=== PATIENT | male | born 1970 | race Caucasian/White ===

== ENCOUNTER 2017-01-23 17:07 | Emergency (ER) | payer MEDICARE, MEDICAID ==
[~2017-01-23] VITALS: Ht 177.8 cm; Wt 104.3 kg
[~2017-01-23 17:07] MED LIST: AMITRIPTYLINE H25 MG PO; AMITRIPTYLINE25 MG; APPEAREX2.5 MG PO; AVINZA90 MG PO; CARAFATE1 GM/10 ML PO; CHOLESTEROL MED; CIPRO500 MG PO; CIPROFLOXACIN500 MG PO; CYANOCOBAL1000 MCG/M IM; EPA FISH OIL1000 MG PO; ERYTHROMYCIN5 MG/GM OPH; FLAGYL500 MG PO; GARLIC OIL NATUR1 MG PO; LAMISIL1% T; LIPITOR20 MG PO; LODOSYN25 MG; LOPID600 MG; MAGNESIUM250 M1 PO; METHOCARBAMOL500 MG PO; NEURONTIN600 MG PO; NORCO 325 MG-51 TAB PO; OPANA ER40 MG PO; OYSTER SHELL CA PO; PERCOCET 325 MG1 TA2 PO; PERCOCET 325 MG1 TA7 PO; PERCOCET 650 MG1 TA1 PO; PRILOSEC20 MG PO; SINEMET 25-1001 TA1 PO; TOBRADEX 0.1%-0.5 ML OPH; TRAMADOL HCL50 MG PO; Tobrex Ophth S2.5 ML OPH; URSODIOL300 MG PO; VITAMIN D50000 I3 PO; WELLBUTRIN XL300 MG PO; ZINC PO; [UNRECOGNIZED DRUG - OTHER] OP
[2017-01-23 17:11] VITALS: BP 151/79
[2017-01-23] MEDS ORDERED: CEFADROXIL500 M1 PO (17:17)
== END 2017-01-23 18:03 | disposition home or self-care (01) ==
LOC: ED 17:07
DX: S61.012A Laceration without foreign body of left thumb without damage to nail, initial encounter (principal); Z98.890 Other specified postprocedural states; Z98.84 Bariatric surgery status; Z79.899 Other long term (current) drug therapy; Z88.5 Allergy status to narcotic agent; W27.8XXA Contact with other nonpowered hand tool, initial encounter; Y93.89 Activity, other specified; Y92.89 Other specified places as the place of occurrence of the external cause; Y99.9 Unspecified external cause status

== ENCOUNTER 2017-06-06 18:28 | Inpatient (IN) | payer MEDICARE, MEDICAID ==
[~2017-06-06] VITALS: Ht 175.3 cm; Wt 98.7 kg
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
--- NOTE | ~2017-06-06 | PR ---
[place], [place] [id number] #: [id number] ROOM: 503 DOCTOR: LUCIUS ROLAND MD BIRTHDATE: [birth year] DOS: SUBJECTIVE: The patient has been admitted to the hospital with chest pain. He is feeling much better. He denies any chest pain, no difficulty in breathing, no nausea and no vomiting, eating well and his vitamin B 12 is 2000, folic acid is normal, vitamin D is 24.1. OBJECTIVE: VITAL SIGNS: His blood pressure is 112/58, pulse 54, respirations 18, temperature 98.7. CHEST: Clear. HEART: Regular. ABDOMEN: Soft. The patient is for stress test tomorrow. LUCIUS ROLAND MD CM:PNTRANS [phone] LUCIUS ROLAND MD 06/08/17 1606 interface
--- NOTE | ~2017-06-06 | PR ---
[place], [place] PROGRESS NOTE [id number] #: [id number] ROOM: 503 DOCTOR: LUCIUS ROLAND MD BIRTHDATE: [birth year] DOS: SUBJECTIVE: The patient had been admitted to the hospital yesterday evening with chest pain on the left-side, radiating in left arm. At present, the patient is feeling good. He denies any chest pain. No difficulty in breathing. No diaphoresis. No other problem. He is sitting comfortably in the bed and his chest x-ray was normal. DIAGNOSTIC STUDIES: CAT scan of lungs was normal and his CBC shows white count 7000, hemoglobin 12.4, hematocrit 35.3, other values are fairly normal. Comprehensive metabolic profile shows calcium 7.9, magnesium 2.3, other values are all normal. Lipid profile is normal. Liver profile is normal. Thyroid is normal. Hemoglobin A1c 4.9. Vitamin B12 and folic acid are normal, but vitamin D is little low, 24.1. The patient has been seen by fusing furnace loader and ruled out any acute problem. His troponin level is less than 5. OBJECTIVE: VITAL SIGNS: His blood pressure today is 124/64, pulse 64, respirations 18, temperature 98.4. CHEST: Clear. HEART: Regular. ABDOMEN: Soft. The patient is stable and not in any acute distress. LUCIUS ROLAND MD CM:PNTRANS [id number] LUCIUS ROLAND MD 06/07/17 1432 interface
[~2017-06-06 18:28] MED LIST changes: +B121000 MCG/2 IM; +CEFADROXIL500 M1 PO; -CYANOCOBAL1000 MCG/M IM
--- NOTE | 2017-06-06 18:39 | NUR ---
EKG COMPLETED PRIOR TO CHEST PAIN ORDER SET BEING PUT IN.
[2017-06-06 18:43] VITALS: BP 130/83
[2017-06-06 18:50] LABS: BASO # 0.1 10*3/uL (0.0-0.1); BASO % 0.8 % (0.0-1.0); EOS # 0.1 10*3/uL (0.0-0.4); HEMATOCRIT 36.1 % (42.0-52.0); HEMOGLOBIN 12.7 g/dl (14.0-18.0); LYMPH # 1.5 10*3/uL (1.3-4.4); MEAN CORPUSCULAR HGB CONC 35.2 g/dl (33.0-37.0); MEAN PLATELET VOLUME 9.9 fl (9.6-12.3); MONO # 0.4 10*3/uL (0.1-1.0); MONO % 4.8 % (3.0-9.0); NEUT % 77.1 % (47.0-73.0); PLATELET COUNT AUTOMATED 158 10*3/uL (130-400); RED CELL DISTRI WIDTH 13.1 % (0-14.5); WHITE BLOOD COUNT 9.1 10*3/uL (4.8-10.8)
[2017-06-06 19:02] LABS: ACT PARTIAL THROMBO TIME 24.9 SECONDS (20.8-31.5); INTERNATIONAL NORM RATIO 1.1 (2.0-3.5)
[2017-06-06 19:07] LABS: ALBUMIN 4.1 gm/dl (3.1-4.5); ALKALINE PHOSPHATASE 101 U/L (45-117); BUN 6 mg/dl (7-24); CHLORIDE 100 mmol/L (98-107); POTASSIUM 3.9 mmol/L (3.5-5.1); SGOT/AST 49 IU/L (3-35); SGPT/ALT 56 U/L (12-78); SODIUM 140 mmol/L (136-145); TOTAL PROTEIN 7.4 gm/dL (6.4-8.2)
[2017-06-06 19:12] LABS: TROPONIN I < 0.015 ng/ml (<0.045)
--- NOTE | 2017-06-06 19:19 | NUR ---
TOOK REPORT FROM PREVIOUS SHIFT. PATIENT STATES HIS CHEST PAIN IS 5/10 REPRODUCABLE WITH PALPATION UNDER LEFT BREAST. NO NEEDS EXPRESSED AT THIS TIME
[2017-06-06 19:26] VITALS: BP 134/83
[2017-06-06 20:10] LABS: URINE AMPHETAMINES < 1000 (1000ng/ml); URINE BARBITURATES < 200 (200ng/ml); URINE BENZODIAZEPINES < 200 (200ng/ml); URINE CANNABINOIDS (THC) < 50 (50ng/ml); URINE COCAINE < 300 (300ng/ml); URINE METHADONE < 300 (300ng/ml); URINE OPIATES > 300 (300ng/ml)
[2017-06-06 20:18] LABS: URINE PHENCYCLIDINE < 25 (25ng/ml)
--- NOTE | 2017-06-06 20:38 | NUR ---
TO CTA VIA CART
--- NOTE | 2017-06-06 20:58 | NUR ---
pt returned from ct
[2017-06-06 20:59] VITALS: BP 122/68
--- NOTE | 2017-06-06 22:45 | NUR ---
A 46, admitted to , under the services of TRACI Burgess MD with a diagnosis of CHEST PAIN. Chief complaint is CHEST PAIN. Patient arrived via bed from ER. Monitor applied. Initial assessment completed. Vital signs taken and recorded. TRACI BURGESS MD notified of admission to the unit. Orders received. See assessment for past medical history, medications and allergies. Patient and/or family oriented to unit. [facility] visitation policy reviewed. Clothing/patient valuable form completed. CLARA KIM
--- NOTE | 2017-06-06 22:59 | NUR ---
PATIENT WAS ADMITTED TO [facility] [place], PATIENT NOTIFIED THIS RN HE HAD HIS PRESCRIPTION NARCOTICS ON HIM, HE REFUSED TO LOCK THEM IN HIS CAR, AND STATED HE WAS GOING TO CALL A FAMILY MEMBER TO COME GET THEM.
[2017-06-06] MEDS ORDERED: Carafate1 GM PO (23:54)
[2017-06-06] MEDS ORDERED: OPANA10 MG PO (23:55)
[2017-06-06] MEDS ORDERED: OXYMORPHONE HCL30 MG PO (23:56)
[2017-06-07] MEDS ORDERED: TAMSULOSIN HCL0.4 MG PO
--- NOTE | 2017-06-07 00:01 | NUR ---
MED REC UPDATED VIA PATIENT RECALL AND MEDICATION CLAIM HISTORY. WILL PASS ALONG THAT HIS PHARMACY NEEDS TO BE CALLED IN THE MORNING TO VERIFY.
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
--- NOTE | 2017-06-07 00:45 | NUR ---
EKG DONE. DR CRONIN ON FLOOR AND SEEN.
--- NOTE | 2017-06-07 01:47 | NUR ---
PER DR CRONIN MAY WAIT TILL MORNING TO CALL CONSULT TO DR RENEE.
--- NOTE | 2017-06-07 05:32 | NUR ---
HR HAS BEEN RUNNING IN THE 50-60'S ALL NIGHT. DID DROP TO 46 AT THIS TIME. WILL NOTIFY CARDIOLOGY.
[2017-06-07 06:29] LABS: BASO # 0.1 10*3/uL (0.0-0.1); BASO % 0.9 % (0.0-1.0); EOS # 0.2 10*3/uL (0.0-0.4); EOS % 2.4 % (1.0-4.0); HEMATOCRIT 35.3 % (42.0-52.0); HEMOGLOBIN 12.4 g/dl (14.0-18.0); LYMPH # 1.7 10*3/uL (1.3-4.4); LYMPH % 24.4 % (27.0-41.0); MEAN CELL VOLUME 88.5 fl (80.0-94.0); MEAN CORPUSCULAR HGB 31.1 pg (27.0-31.0); MEAN CORPUSCULAR HGB CONC 35.1 g/dl (33.0-37.0); MEAN PLATELET VOLUME 10.5 fl (9.6-12.3); MONO # 0.5 10*3/uL (0.1-1.0); MONO % 6.8 % (3.0-9.0); NEUT # 4.6 10*3/uL (2.3-7.9); NEUT % 65.2 % (47.0-73.0); PLATELET COUNT AUTOMATED 160 10*3/uL (130-400); RED BLOOD COUNT 3.99 10*6/uL (4.50-5.90); RED CELL DISTRI WIDTH 13.2 % (0-14.5)
--- NOTE | 2017-06-07 06:36 | NUR ---
ANSWERING SERVICE WAS NOTIFIED OF DR. RENEE CONSULT. RESPONSE OF NOTIFICATION WAS OK I WILL GIVE THIS TO HIM. CLARA KIM
--- NOTE | 2017-06-07 06:43 | NUR ---
SPOKE TO DR RENEE REGARDING CONSULT. NO NEW ORDERS RECEIVED.
[2017-06-07 07:02] LABS: ALBUMIN 3.5 gm/dl (3.1-4.5); BUN 5 mg/dl (7-24); CHLORIDE 104 mmol/L (98-107); SODIUM 142 mmol/L (136-145)
[2017-06-07 07:10] LABS: ALKALINE PHOSPHATASE 94 U/L (45-117); CHOLESTEROL 164 mg/dL (<200); CREATININE 0.63 mg/dL (0.70-1.30); HDL CHOLESTEROL 56 mg/dl (40-60); LDL CHOLESTEROL 85 mg/dL (9-159); PHOSPHOROUS 3.1 mg/dL (2.5-4.9); SGOT/AST 28 IU/L (3-35); SGPT/ALT 43 U/L (12-78); TOTAL PROTEIN 6.4 gm/dL (6.4-8.2); TRIGLYCERIDES 117 mg/dl (<150); VLDL CHOLESTEROL 23 mg/dL (6-40)
[2017-06-07 08:00] VITALS: BP 124/64
--- NOTE | 2017-06-07 08:00 | NUR ---
PATIENT UPSET IN AM. STATED HE WANTED HIS MEDICATION, ADISED HIM THAT HAD TO WAIT UNTIL PHARMACY OPENED TO GET MEDICATION LIST. PATIENT COMPLAINS OF SLIGHT PAIN IN RIGHT RIB AREA. STATED THAT HE HAD FALLEN YESTERDAY. LUNGS CLEAR, NO EDEMA NOTED. OFFERED GOWN AND PANTS TO PUT ON, CLOTHES COVERED WITH TAR. HE STATED HE WOULD PUT THEM ON LATER, WANTED A SHOWER FIRST.
[2017-06-07 08:24] LABS: VITAMIN D, 25-HYDROXY 24.1 ng/mL (30-100)
--- NOTE | 2017-06-07 11:00 | NUR ---
PATIENT REFUSES TO HAVE HIS MEDICATION IN PHARMACY OR [place]. REFUSES TO CHANGE CLOTHES, GOWN AND PANTS GIVE TO PATIENT. CLOTHES HAVE TAR ON THEM. PATIENT EXPLAINED THAT HE HAD FALLEN YESTERDAY AFTERNOON AND NOW HAS ONLY MINIMAL PAIN IN HIS LEFT RIB AREA.
[2017-06-07] MEDS ORDERED: OPANA10 MG PO (11:46)
[2017-06-07] MEDS ORDERED: PERCOCET 10-321 EACH PO (11:51)
--- NOTE | 2017-06-07 12:00 | NUR ---
PATIENT SEEN BY DR RENEE AND DR ROLAND, ORDERS RECEIVED.
--- NOTE | 2017-06-07 12:03 | NUR ---
PATIENT STATES THAT HE GETS HIS MEDICATION FROM [facility] [place] AND [facility] IN [facility]. [place] [facility] SENT RECENT MEDICATION LIST. [facility] IS A COMPOUNDING PHARMACY AND IS ONLY OPEN 9-6 ON -. MEDICATION PUT IN FOR REVIEW.
--- NOTE | 2017-06-07 16:11 | NUR ---
DAUGHTER CAME IN AND IS TAKING HIS HOME MEDICATION WITH HER. SHE STATED THAT SHE WILL CALL HIS MEDICATION LIST IN. SHE STATES THAT HE HAD GASTRIC BYPASS SURGERY [address] [facility]. SHE STATED THAT HE WOULD NEED HIS MEDICATION TO HELP DIGEST HIS FOOD.
[2017-06-07 16:24] VITALS: BP 135/74
[2017-06-07 20:08] VITALS: BP 118/67
--- NOTE | 2017-06-07 22:25 | NUR ---
PATIENT GIVEN RESTORIL FOR SLEEP. THE PATIENT WAS EDUCATED ON WHAT THE MEDICATION WAS. NO CONCERNS AT THIS TIME.
[2017-06-08] VITALS: BP 111/68
[2017-06-08 08:00] VITALS: BP 112/58
--- NOTE | 2017-06-08 10:45 | NUR ---
DR ROLAND IN TO SEE PT. ORDER TO CONTINUE [facility] MEDICATIONS INCLUDING PRN PERCOCET.
[2017-06-08 16:00] VITALS: BP 126/74
[2017-06-08 20:00] VITALS: BP 116/60
[2017-06-09] VITALS: BP 111/53
--- NOTE | 2017-06-09 01:01 | NUR ---
PATIENT RESTING IN BED WITH EYES CLOSED. NO SIGNS OR SYMPTOMS OF DISTRESS NOTED. AROUSES TO VERBAL STIMULI. WILL CONTINUE TO MONITOR. CALL LIGHT IN REACH.
[2017-06-09 08:00] VITALS: BP 109/65
--- NOTE | 2017-06-09 08:30 | NUR ---
Well Servicing Rig Operator in to talk to patient. 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 There are 40 steps in the home. Physician: DR ALANIS Pharmacy: [facility] [place] Home health services: NONE Patient's level of ADLs: INDEPENDENT Patient has working utilities: YES DME: CPAP/NEB/O2-DOESNT KNOW WHO SUPPLIES O2 Follow-up physician's appointment after d/c: PREFERS TO MAKE HIS OWN APPT Does patient want to access PORTAL?: Discharge plan HOME. TARI HERRERA
--- NOTE | 2017-06-09 09:02 | NUR ---
PT REQUESTED MEDICATION FOR DIARRHEA. IMODIUM GIVEN.
--- NOTE | 2017-06-09 09:18 | NUR ---
PT OFF FLOOR FOR LEXISCAN.
--- NOTE | 2017-06-09 11:53 | NUR ---
INFORMED SIGNED CONSENT OBTAINED FOR LEXISCAN STRESS TEST WITH DR ZIEGLER. RESTING EKG NSR HR 57 BP 138/80. PULSE OX 95% LUNGS CLEAR. PT COMPLETED ONE MINUTE OF A LEXISCAN PROTOCOL WITH PT RECEIVING LEXISCAN 0.4MG IV OVER 10 SECONDS. NO ARRHYTMIAS OR ST CHANGES NOTED. LAST RECOVERY HR OF 79 BP 1128/54. PT IN STABLE CONDITION, AWAIITNG NUCLEAR IMAGES.
[2017-06-09 12:00] VITALS: BP 133/81
--- NOTE | 2017-06-09 12:57 | NUR ---
PT RETURNED TO FLOOR FROM [facility].
[2017-06-09] MEDS ORDERED: METOPROLOL SUCC25 M2 PO (14:07)
[2017-06-09] MEDS ORDERED: ASPIRIN ADULT L81 M2 PO (14:07)
[2017-06-09] MEDS ORDERED: ATORVASTATIN CA40 M1 PO (14:07)
--- NOTE | 2017-06-09 16:23 | NUR ---
Discharge instructions reviewed with patient/family. Patient receptive and verbalizes understanding. Follow-up care arranged. Written instructions given to patient/family. Patient ambulatory off floor. Heplock & aerial photograph interpreter discontinued. SYLWIA ALLEN
== END 2017-06-09 16:23 | disposition home or self-care (01) | DRG 563 ==
LOC: ED 18:28 → EDHOLD 22:05 → 5E 22:05
PROVIDERS: Emergency Medicine; Physician Assistant; Student in an Organized Health Care Education/Training Program; ADMIT Internal Medicine
PROC: 3E073KZ Introduction of Other Diagnostic Substance into Coronary Artery, Percutaneous Approach (ICD-10-PCS; principal; 2017-06-09)
PROC: 4A02XM4 Measurement of Cardiac Total Activity, External Approach (ICD-10-PCS; principal; 2017-06-09)
DX: S29.012A Strain of muscle and tendon of back wall of thorax, initial encounter (principal); D64.9 Anemia, unspecified; R07.89 Other chest pain; I25.10 Atherosclerotic heart disease of native coronary artery without angina pectoris; D72.810 Lymphocytopenia; E78.5 Hyperlipidemia, unspecified; R73.9 Hyperglycemia, unspecified; R00.1 Bradycardia, unspecified; G47.33 Obstructive sleep apnea (adult) (pediatric); W18.39XA Other fall on same level, initial encounter; F17.200 Nicotine dependence, unspecified, uncomplicated; J44.9 Chronic obstructive pulmonary disease, unspecified; R74.0 Nonspecific elevation of levels of transaminase and lactic acid dehydrogenase [LDH]; Y92.89 Other specified places as the place of occurrence of the external cause; Y99.8 Other external cause status; I25.2 Old myocardial infarction; Z79.82 Long term (current) use of aspirin; Z79.899 Other long term (current) drug therapy; Z88.8 Allergy status to other drugs, medicaments and biological substances; Z72.89 Other problems related to lifestyle; Z82.49 Family history of ischemic heart disease and other diseases of the circulatory system; Z82.3 Family history of stroke; Z80.9 Family history of malignant neoplasm, unspecified; Z90.49 Acquired absence of other specified parts of digestive tract; Z83.3 Family history of diabetes mellitus; Z83.6 Family history of other diseases of the respiratory system; Y93.E5 Activity, floor mopping and cleaning

== ENCOUNTER → 2021-11-20 | Outpatient (CLI) | payer MEDICARE, MEDICAID ==
[~2021-11-20] MED LIST changes: +ASPIRIN ADULT L81 M2 PO; +ATORVASTATIN CA40 M1 PO; +Carafate1 GM PO; +KEFLEX500 M1 PO; +METOPROLOL SUCC25 M2 PO; +NAPROSYN500 MG PO; +OPANA10 MG PO; +OXYMORPHONE HCL30 MG PO; +PERCOCET 10-321 EACH PO; +SEPTDS PO; +TAMSULOSIN HCL0.4 MG PO
== END | disposition home or self-care (01) ==
LOC: US 09:19
PROVIDERS: ATTEND Internal Medicine
DX: K43.9 Ventral hernia without obstruction or gangrene (principal)